=== PATIENT | male | born 1940 | race Hispanic/Latino ===

== ENCOUNTER 2020-06-08 10:56 | Outpatient (CLI) | payer MEDICARE | END 2020-06-08 10:57 | disposition home or self-care (01) | LOC: SCSRAD 10:56 | PROVIDERS: ATTEND Family Medicine | DX: R30.0 Dysuria (principal) | CPT/HCPCS: 74018; 87086 ==

== ENCOUNTER 2024-01-29 10:35 | Outpatient (CLI) | payer MEDICARE | END 2024-01-29 10:36 | disposition home or self-care (01) | LOC: SCSRAD 10:35 | PROVIDERS: ATTEND Family Medicine | DX: M54.2 Cervicalgia (principal); M47.812 Spondylosis without myelopathy or radiculopathy, cervical region | CPT/HCPCS: 72040 ==

== ENCOUNTER 2024-02-07 07:18 | Outpatient (CLI) | payer MEDICARE | END 2024-02-07 07:19 | disposition home or self-care (01) | LOC: SCSMRI 07:18 | PROVIDERS: ATTEND Family Medicine | DX: M50.30 Other cervical disc degeneration, unspecified cervical region (principal); M47.812 Spondylosis without myelopathy or radiculopathy, cervical region; M48.02 Spinal stenosis, cervical region; G95.89 Other specified diseases of spinal cord; M48.03 Spinal stenosis, cervicothoracic region; G95.29 Other cord compression | CPT/HCPCS: 72141 ==